=== PATIENT | female | born 1975 | race Hispanic/Latino ===

== ENCOUNTER → 2018-07-27 | Outpatient (CLI) | payer OTHER | END | disposition home or self-care (01) | LOC: RAH 09:18 | PROVIDERS: ATTEND Internal Medicine | DX: Z12.31 Encounter for screening mammogram for malignant neoplasm of breast (principal) | CPT/HCPCS: 77067 ==

== ENCOUNTER 2019-12-18 12:37 | Inpatient (IN) | payer OTHER ==
[~2019-12-18] VITALS: Ht 154.9 cm; Wt 84.4 kg
[2019-12-18 13:05] LABS: APPEARANCE,URINE Cloudy (CLEAR); BILIRUBIN,URINE Negative (NEGATIVE); COLOR,URINE Dark Yellow (YELLOW); GLUCOSE, URINE (UA) Negative (NEGATIVE); KETONES,URINE Negative (NEGATIVE); LEUKOCYTE ESTERASE ,URINE Trace (NEGATIVE); NITRATE,URINE Negative (NEGATIVE); OCCULT BLOOD,URINE Negative (NEGATIVE); PROTEIN,URINE Trace mg/dL (NEGATIVE)
[2019-12-18 13:23] LABS: BASOPHILS % (AUTO) 0.4 % (0.0-5.0); EOSINOPHILS % (AUTO) 0.7 % (0.0-8.0); HEMATOCRIT 30.5 % (36-48); LYMPHOCYTES % (AUTO) 12.2 % (21.0-51.0); MEAN CORPUSCULAR HEMOGLOBIN 23.3 pg (27.0-33.0); MEAN CORPUSCULAR HGB CONC 29.8 g/dL (32.0-36.0); MONOCYTES % (AUTO) 3.7 % (3.0-13.0); NEUTROPHILS % (AUTO) 82.6 % (40.0-77.0); PLATELET COUNT (AUTO) 398 K/uL (130-400); RED BLOOD CELL COUNT(AUTO) 3.91 MIL/uL (4.00-5.50); RED CELL DISTRIBUTION WIDTH 15.9 % (11.0-15.5); WHITE BLOOD COUNT (AUTO) 13.2 K/uL (4.8-10.8)
[2019-12-18 13:28] LABS: RBC,URINE None Seen /HPF (0-1)
[2019-12-18 13:29] LABS: MUCUS,URINE Many LPF (None Seen)
[2019-12-18 13:30] LABS: BACTERIA,URINE Moderate /HPF (None Seen); SQUAMOUS EPITHELIAL CELL,UR Many /HPF (0-2)
[2019-12-18 13:35] LABS: CREATININE 0.6 mg/dL (0.5-1.5); POTASSIUM 3.7 mmol/L (3.5-5.1)
[2019-12-18 13:39] LABS: ALBUMIN 3.5 g/dL (3.5-5.0); BILIRUBIN,TOTAL 0.6 mg/dL (0.2-1.0); TOTAL PROTEIN, SERUM 7.2 g/dL (6.0-8.3)
[2019-12-18] MEDS ORDERED: KETOROLAC TROMETHAMINE 30MG/ML ONE (13:48)
[2019-12-18] MEDS ORDERED: ONDANSETRON HCL 4 MG/2 ML VIAL ONE (13:48)
[2019-12-18] MEDS ORDERED: SODIUM CHLORIDE 0.9% 1000ML 1,000 ML IV ONE ×2 (13:49→16:12)
[2019-12-18] MEDS ORDERED: DICYCLOMINE HCL 10 MG/ML 2ML AMP IM ONE (14:32)
[2019-12-18] MEDS ORDERED: MORPHINE SULFATE 2 MG/ML 1ML SYG IVP PRN (15:00)
[2019-12-18] MEDS ORDERED: MORPHINE SULFATE 4 MG/1ML SYG IVP PRN (15:00)
[2019-12-18] MEDS ORDERED: ONDANSETRON HCL 4 MG/2 ML VIAL IVP PRN (15:15)
[2019-12-18 16:40] LABS: % IRON SATURATION 6.8 % (22-44)
[2019-12-18] MEDS ORDERED: SODIUM CHLORIDE 0.9% 1000ML 1,000 ML IV SCH (16:45)
[2019-12-18] MEDS ORDERED: ZOSYN 3.375GM+NS 50ML 50 ML IV ONE (18:24)
[2019-12-18 18:55] VITALS: BP 138/86
--- NOTE | 2019-12-18 19:30 | NUR ---
Patient; Patient brought to radiology via wheelchair accompanied by Bee[employer]ive Kiln Supervisor.
--- NOTE | 2019-12-18 21:00 | NUR ---
Patient came; Patient came back from the radiology via wheelchair accompanied by the plant and maintenance technician. Assisted to lie back to bed patient made comfortable. No complaints of pain.
[2019-12-18] MEDS: FAMOTIDINE/PF 20 MG/2 ML VIAL IV SCH (21:25)
--- NOTE | 2019-12-18 21:35 | NUR ---
Patient; Patient taken by the textile colorist dyer to complete the HIDA SCAN.
[2019-12-18] MEDS ORDERED: FLUO40CA49 PO (21:39)
[2019-12-18] MEDS ORDERED: LEVO150T11 PO (21:39)
[2019-12-18 23:20] VITALS: BP 132/77
[2019-12-19] MEDS: ZOSYN 3.375GM+NS 50ML 50 ML IV SCH ×3 (02:03→17:27)
[2019-12-19 03:55] VITALS: BP 121/68
[2019-12-19 04:56] LABS: BASOPHILS % (AUTO) 0.3 % (0.0-5.0); EOSINOPHILS % (AUTO) 1.4 % (0.0-8.0); HEMATOCRIT 26.6 % (36-48); LYMPHOCYTES % (AUTO) 20.1 % (21.0-51.0); MEAN CORPUSCULAR HEMOGLOBIN 22.9 pg (27.0-33.0); MEAN CORPUSCULAR HGB CONC 28.9 g/dL (32.0-36.0); MEAN CORPUSCULAR VOLUME 79.2 fL (79-99); MONOCYTES % (AUTO) 6.9 % (3.0-13.0); NEUTROPHILS % (AUTO) 70.8 % (40.0-77.0); PLATELET COUNT (AUTO) 307 K/uL (130-400); RED BLOOD CELL COUNT(AUTO) 3.36 MIL/uL (4.00-5.50); WHITE BLOOD COUNT (AUTO) 9.4 K/uL (4.8-10.8)
[2019-12-19 05:14] LABS: CREATININE 0.6 mg/dL (0.5-1.5); POTASSIUM 3.4 mmol/L (3.5-5.1)
[2019-12-19] MEDS: SODIUM CHLORIDE 0.9% 1000ML 1,000 ML IV SCH ×3 (05:53→21:00)
[2019-12-19 07:31] VITALS: BP 126/75
[2019-12-19] MEDS ORDERED: LIDOCAINE HCL-MPF 1% 2ML VIAL IV PRN (09:15)
[2019-12-19] MEDS: FAMOTIDINE/PF 20 MG/2 ML VIAL IV SCH ×2 (09:27→21:08)
[2019-12-19 11:41] VITALS: BP 121/70
[2019-12-19] MEDS: POTASSIUM CHLORIDE 10MEQ/100ML 100 ML IV PRN (14:23)
--- NOTE | 2019-12-19 14:50 | NUR ---
GABRIELE INITIAL MEET WITH PATIENT IN ROOM, PATIENT AAOX3. PER PATIENT, LIVES WITH ADULT SON, IS INDEPENDENT WITH ADLS, NO PROVIDER OR HOME HEALTH SERVICES, NO DME IN USE AND FEELS SAFE TO RETURN HOME ONCE READY AND CLEARED BY MD. PATIENT UNINSURED, SELF REFERRAL PACKET GIVEN TO PATIENT, VERBALIZED UNDERSTANDING OF INFORMATION ON PACKET. Addendum: 12/19/19 at 1452 by JUAN MEREDITH RN CM Amended: Links added.
[2019-12-19 16:17] VITALS: BP 134/84
[2019-12-19] MEDS ORDERED: POTASSIUM CHLORIDE 10% ELIXIR 20 MEQ/15 ML UDCUP PO PRN (19:30)
[2019-12-19 20:01] VITALS: BP 131/73
[2019-12-19] MEDS: POTASSIUM CHLORIDE 20 MEQ ERTAB PO PRN ×2 (20:16→22:06)
[2019-12-20] VITALS (23 sets, daily range): BP systolic 104–138; BP diastolic 48–92
[2019-12-20] MEDS: ZOSYN 3.375GM+NS 50ML 50 ML IV SCH ×3 (01:55→21:11)
[2019-12-20] MEDS: SODIUM CHLORIDE 0.9% 1000ML 1,000 ML IV SCH ×2 (02:51→07:00)
[2019-12-20 04:15] LABS: BASOPHILS % (AUTO) 0.4 % (0.0-5.0); EOSINOPHILS % (AUTO) 1.3 % (0.0-8.0); HEMATOCRIT 24.8 % (36-48); LYMPHOCYTES % (AUTO) 26.3 % (21.0-51.0); MEAN CORPUSCULAR HEMOGLOBIN 23.1 pg (27.0-33.0); MEAN CORPUSCULAR VOLUME 79.5 fL (79-99); MONOCYTES % (AUTO) 5.5 % (3.0-13.0); PLATELET COUNT (AUTO) 285 K/uL (130-400); RED BLOOD CELL COUNT(AUTO) 3.12 MIL/uL (4.00-5.50); RED CELL DISTRIBUTION WIDTH 16.2 % (11.0-15.5); WHITE BLOOD COUNT (AUTO) 9.5 K/uL (4.8-10.8)
[2019-12-20 04:28] LABS: CREATININE 0.6 mg/dL (0.5-1.5); POTASSIUM 3.8 mmol/L (3.5-5.1)
--- NOTE | 2019-12-20 05:00 | NUR ---
Activity; Patient assisted to get up and take a shower, needs provided. Pre-operative teachings given., she verbalizes understanding.
--- NOTE | 2019-12-20 06:35 | NUR ---
Daily weight - 188 lbs
[2019-12-20] MEDS: POTASSIUM CHLORIDE 10MEQ/100ML 100 ML IV PRN (07:11)
[2019-12-20] MEDS: FAMOTIDINE/PF 20 MG/2 ML VIAL IV SCH ×2 (08:32→21:11)
--- NOTE | 2019-12-20 11:20 | NUR ---
1ST unit of blood started transfusing, witnessed by Marylou Castro RN Addendum: 12/20/19 at 1125 by USHA BERG RN Amended: Links added.
[2019-12-20] MEDS ORDERED: BUPIVACAINE/PF 0.5% 30ML VIAL ONE (13:17)
[2019-12-20] MEDS ORDERED: LIDOCAINE PF 2% 5ML ABBOJECT ONE (13:24)
[2019-12-20] MEDS ORDERED: SUCCINYLCHOLINE CHLORIDE 20 MG/ML 10 ML VIAL ONE (13:24)
[2019-12-20] MEDS ORDERED: ROCURONIUM 10MG/1ML SYR 10 MG/ML ML ONE (13:24)
[2019-12-20] MEDS ORDERED: PROPOFOL 10 MG/ML 20ML VIAL IV ONE (13:24)
[2019-12-20] MEDS ORDERED: FENTANYL CITRATE PF 50 MCG/1 ML 2ML VIAL ONE (13:24)
--- NOTE | 2019-12-20 13:28 | NUR ---
1ST unit of blood transfused, no reactions noted. Addendum: 12/20/19 at 1356 by USHA BERG RN Amended: Links added.
--- NOTE | 2019-12-20 13:30 | NUR ---
taken to holding area via her bed by Sudha and JohnnyRN- OR staff Addendum: 12/20/19 at 1418 by USHA BERG RN Amended: Links added.
[2019-12-20] MEDS ORDERED: MIDAZOLAM HCL 1 MG/ML 2ML VIAL ONE (15:38)
[2019-12-20] MEDS ORDERED: PHENYLEPHRINE HCL 10 MG/ML 1ML VIAL IV ONE (15:59)
[2019-12-20] MEDS ORDERED: EPHEDRINE SULFATE 50 MG/ML AMPULE ONE (16:00)
[2019-12-20] MEDS ORDERED: GLYCOPYRROLATE 1 MG/5 ML SYRINGE ONE (16:01)
[2019-12-20] MEDS ORDERED: NEOSTIGMINE 5MG/5ML SYR IV ONE (16:10)
[2019-12-20] MEDS ORDERED: KETOROLAC TROMETHAMINE 30MG/ML ONE (16:11)
[2019-12-20] MEDS ORDERED: ONDANSETRON HCL 4 MG/2 ML VIAL ONE (16:11)
[2019-12-20] MEDS ORDERED: LACTATED RINGERS 1000ML 1,000 ML IV SCH (16:16)
[2019-12-20] MEDS ORDERED: MEPERIDINE-PF 25 MG/ML SYG ONE ×2 (16:16→17:06)
[2019-12-20] MEDS: MORPHINE SULFATE 4 MG/1ML SYG IV PRN ×2 (17:41→21:59)
[2019-12-20] MEDS ORDERED: ZOSYN 3.375GM+NS 50ML 50 ML IV SCH (21:00)
[2019-12-21] MEDS: ZOSYN 3.375GM+NS 50ML 50 ML IV SCH ×3 (01:24→05:20)
[2019-12-21] MEDS: MORPHINE SULFATE 4 MG/1ML SYG IV PRN (02:49)
[2019-12-21] MEDS: SODIUM CHLORIDE 0.9% 1000ML 1,000 ML IV SCH (02:53)
[2019-12-21 03:36] VITALS: BP 135/77
[2019-12-21 04:22] LABS: HEMATOCRIT 27.3 % (36-48); MEAN CORPUSCULAR HEMOGLOBIN 23.8 pg (27.0-33.0); MEAN CORPUSCULAR HGB CONC 29.7 g/dL (32.0-36.0); MEAN CORPUSCULAR VOLUME 80.3 fL (79-99); PLATELET COUNT (AUTO) 279 K/uL (130-400); RED CELL DISTRIBUTION WIDTH 16.2 % (11.0-15.5); WHITE BLOOD COUNT (AUTO) 12.1 K/uL (4.8-10.8)
[2019-12-21 04:32] LABS: ALBUMIN 2.9 g/dL (3.5-5.0); BILIRUBIN,TOTAL 0.7 mg/dL (0.2-1.0); CREATININE 0.6 mg/dL (0.5-1.5); POTASSIUM 4.3 mmol/L (3.5-5.1); TOTAL PROTEIN, SERUM 6.3 g/dL (6.0-8.3)
[2019-12-21 04:51] LABS: BAND NEUTROPHILS % (MANUAL) 1 % (0-2); LYMPHOCYTES % (MANUAL) 9 % (22-44); MAN.DIFF COMMENT-IMPRESSION MANUAL DIFFERENTIAL; MONOCYTES % (MANUAL) 3 % (2-9); PLATELET MORPHOLOGY COMMENT ADEQUATE; REACTIVE LYMPHOCYTES 1 % (0-0); SEGMENTED NEUTROPHILS % 86 % (40-70)
[2019-12-21 07:20] VITALS: BP 119/51
[2019-12-21] MEDS: FAMOTIDINE/PF 20 MG/2 ML VIAL IV SCH (08:27)
[2019-12-21] MEDS: ACETAMINOPHEN-CODEINE 300/30MG TAB PO PRN ×2 (08:27→15:00)
[2019-12-21 11:05] VITALS: BP 138/75
--- NOTE | 2019-12-21 11:55 | NUR ---
ROUNDING GRAY POSEY AT BEDSIDE TO ASSESS AND TALK TO PT. NEW ORDERS RECEIVED FOR MAG CITRATE X1. ONCE PT HAS POSITIVE BOWEL RESULTS, MAY BE DISCHARGED.
[2019-12-21] MEDS ORDERED: MAGNESIUM CITRATE 296 ML SOLUTION PO SCH (12:15)
--- NOTE | 2019-12-21 14:40 | NUR ---
PT HAD POSITIVE RESULTS FROM MAGNESIUM CITRATE. PT STATED WAS ABLE TO PASS GAS AND HAVE A BM.
--- NOTE | 2019-12-21 15:50 | NUR ---
DISCHARGE PT LEFT UNIT VIA WHEELCHAIR, ACCOMPANIED BY SISTER. DENIED PAIN AND HAD NO COMPLAINTS. PT DENIED PAIN AND HAD NO COMPLAINTS. TRANSPORTED BY PERSONAL VEHICLE.
== END 2019-12-21 15:50 | disposition home or self-care (01) | DRG 418 ==
LOC: EDH 12:37 → EDHIP 12:38 → WSH 18:45
PROVIDERS: ADMIT Internal Medicine; ATTEND Internal Medicine
PROC: 30233N1 Transfusion of Nonautologous Red Blood Cells into Peripheral Vein, Percutaneous Approach (ICD-10-PCS; 2019-12-20)
PROC: 0FT44ZZ Resection of Gallbladder, Percutaneous Endoscopic Approach (ICD-10-PCS; principal; 2019-12-20 15:35)
DX: K80.00 Calculus of gallbladder with acute cholecystitis without obstruction (principal); N39.0 Urinary tract infection, site not specified; R16.0 Hepatomegaly, not elsewhere classified; K52.9 Noninfective gastroenteritis and colitis, unspecified; E03.9 Hypothyroidism, unspecified; N20.0 Calculus of kidney; D64.9 Anemia, unspecified; K83.8 Other specified diseases of biliary tract; Z88.8 Allergy status to other drugs, medicaments and biological substances
CPT/HCPCS: 36415; 76705; 78226; 80048; 80053; 81001; 81025; 83540; 83550; 83690; 84132; 85025; 86850; 86900; 86901; 86922; 93005; A9537; G0378; J0330; J0500; J1885; J2001; J2175; J2250; J2270; J2370; J2405; J2543; J2704; J2710; J3010; J3490; J7030; P9016